=== PATIENT | female | born 1945 | race Caucasian/White ===

== ENCOUNTER 2022-09-29 18:43 | Inpatient (IN) | payer MEDICARE, MEDICAID ==
[~2022-09-29] VITALS: Ht 165.1 cm; Wt 63.2 kg
[~2022-09-29 18:43] MED LIST: ESCI-8 PO; LISI20TA24 PO; LORA0.5T83 PO; PANT-31 PO; ROSU5TAB PO
[2022-09-29 20:22] LABS: ANION GAP 12 mmol/L (8-16); CALCIUM, TOTAL 9.7 mg/dL (8.8-10.5); CARBON DIOXIDE 25 mmol/L (22-29); CHLORIDE 104 mmol/L (98-107); CREATININE 0.94 mg/dL (0.60-1.30); GLOMERULAR FILTR. RATE CALC 58 mL/min (>60); GLUCOSE,RANDOM 141 mg/dL (70-110); POTASSIUM 3.5 mmol/L (3.5-5.1); SODIUM SERUM 141 mmol/L (136-145)
[2022-09-29 20:25] LABS: BASOPHILS % (AUTO) 0.5 % (0.0-2.0); EOSINOPHILS % (AUTO) 0.1 % (1.0-6.0); HEMATOCRIT 35.1 % (36-46); HEMOGLOBIN 12.2 g/dL (12.0-16.0); LYMPHOCYTES # (AUTO) 1.1 K/uL (1.0-4.8); MEAN CORPUSCULAR HEMOGLOBIN 31.9 pg (26.0-34.0); MEAN CORPUSCULAR HGB CONC 34.6 G/dL (31.0-37.0); MEAN CORPUSCULAR VOLUME 92 fL (80-100); MONOCYTES # (AUTO) 0.5 K/uL (0.1-1.0); MONOCYTES % (AUTO) 8.6 % (2.0-9.0); NEUTROPHILS # (AUTO) 4.6 K/uL (1.8-7.7); NEUTROPHILS % (AUTO) 72.8 % (40.0-70.0); PLATELET COUNT (AUTO) 350 K/uL (150-450); RED CELL DISTRIBUTION WIDTH 13.9 % (11.5-14.5)
[2022-09-29 20:28] LABS: ALANINE AMINOTRANSFERASE 24 U/L (12-78); ALBUMIN 3.8 g/dL (3.4-5.0); ALKALINE PHOSPHATASE 80 U/L (46-116); ASPARTATE AMINOTRANSFERASE 17 U/L (15-37); BILIRUBIN,TOTAL 0.4 mg/dL (0.1-1.0); LIPASE 22 U/L (16-77); TOTAL PROTEIN, SERUM 7.9 g/dL (6.4-8.2)
[2022-09-29 20:30] LABS: AMMONIA 41 umol/L (11-32)
[2022-09-29] MEDS ORDERED: OXYMETAZOLINE HCL 0.05% 15 ML NASAL SPRAY NASAL ONE (21:00)
[2022-09-29] MEDS ORDERED: ONDANSETRON HCL 4 MG/2 ML VIAL IVP PRN (21:00)
[2022-09-29] MEDS ORDERED: [UNRECOGNIZED DRUG - OTHER] AU (21:11)
[2022-09-29] MEDS ORDERED: MELATONIN 3 MG TABLET PO ONE (21:15)
[2022-09-29 21:31] LABS: COVID AG,FIA SOURCE NASOPHARYNGEAL
[2022-09-29] MEDS: LACTULOSE 20 GM/30 ML SOLUTION UDCUP PO SCH (22:06)
[2022-09-29] MEDS: PIPERACILLIN/TAZO 3.375 GM/D5W 50 ML IV SCH (23:53)
[2022-09-30] MEDS: HEPARIN SODIUM,PORCINE 5,000 UNITS/ML VIAL SQ SCH ×4 (01:33→23:28)
[2022-09-30 02:29] LABS: AMPHET/METH SCREEN,URINE NEGATIVE (NEGATIVE); BARBITURATE SCREEN, URINE NEGATIVE (NEGATIVE); BENZODIAZEPINES SCREEN,URINE NEGATIVE (NEGATIVE); CANNABINOID SCREEN,URINE NEGATIVE (NEGATIVE); COCAINE SCREEN,URINE NEGATIVE (NEGATIVE); METHADONE SCREEN, URINE NEGATIVE (NEGATIVE); OPIATE SCREEN,URINE NEGATIVE (NEGATIVE); PHENCYCLIDINE SCREEN,URINE NEGATIVE (NEGATIVE)
[2022-09-30 02:37] LABS: APPEARANCE,URINE CLEAR (CLEAR); BILIRUBIN,URINE NEGATIVE (NEGATIVE); GLUCOSE, URINE (UA) NEGATIVE (NEGATIVE); KETONES,URINE NEGATIVE (NEGATIVE); LEUKOCYTE ESTERASE ,URINE MODERATE (NEGATIVE); NITRATE,URINE NEGATIVE (NEGATIVE); OCCULT BLOOD,URINE TRACE (NEGATIVE); PH,URINE 6.5 (5.0-8.0); PROTEIN,URINE NEGATIVE (NEGATIVE); SPECIFIC GRAVITIY, URINE 1.015 (1.003-1.030); UROBILINOGEN,URINE <=1.0 mg/dL (<=1.0)
[2022-09-30 02:45] LABS: BACTERIA,URINE Few /HPF (None Seen); CALCIUM OXALATE CRYSTALS,UR Few /LPF (None Seen); RBC,URINE 0-2 /HPF (0-2); SQUAMOUS EPITHELIAL CELL,UR Few /LPF (None Seen)
[2022-09-30] MEDS ORDERED: DIAZEPAM 2 MG TABLET PO ONE (04:45)
[2022-09-30] MEDS ORDERED: TraZODone HCL 50 MG TABLET PO ONE (04:45)
[2022-09-30] MEDS: PIPERACILLIN/TAZO 3.375 GM/D5W 50 ML IV SCH ×3 (05:55→15:09)
[2022-09-30] MEDS: LACTULOSE 20 GM/30 ML SOLUTION UDCUP PO SCH ×3 (08:51→20:23)
[2022-09-30] MEDS: LORazepam 0.5 MG TABLET PO PRN ×3 (10:06→23:27)
[2022-09-30 17:30] LABS: ANION GAP 11 mmol/L (8-16); CARBON DIOXIDE 22 mmol/L (22-29); CHLORIDE 106 mmol/L (98-107); CREATININE 0.84 mg/dL (0.60-1.30); GLOMERULAR FILTR. RATE CALC > 60 mL/min (>60); GLUCOSE,RANDOM 98 mg/dL (70-110); POTASSIUM 3.9 mmol/L (3.5-5.1); SODIUM SERUM 139 mmol/L (136-145)
[2022-09-30 20:38] VITALS: BP 143/71; PULSE 77; RESP 20; TEMP 98.4
[2022-09-30] MEDS ORDERED: SODIUM CHLORIDE 0.9% 500 ML IV ONE (23:07)
[2022-10-01] MEDS: PIPERACILLIN/TAZO 3.375 GM/D5W 50 ML IV SCH ×5 (00:20→23:58)
[2022-10-01 04:03] VITALS: BP 129/61; PULSE 79; RESP 20; TEMP 98.1
[2022-10-01] MEDS: LORazepam 0.5 MG TABLET PO PRN ×3 (06:35→22:14)
[2022-10-01] MEDS: LACTULOSE 20 GM/30 ML SOLUTION UDCUP PO SCH ×3 (08:17→21:00)
[2022-10-01] MEDS: HEPARIN SODIUM,PORCINE 5,000 UNITS/ML VIAL SQ SCH ×3 (08:17→23:57)
[2022-10-01 08:39] VITALS: BP 127/69; PULSE 81; RESP 20; TEMP 98.8
[2022-10-01] MEDS: ACETAMINOPHEN 325 MG TABLET PO PRN ×2 (09:22→15:33)
[2022-10-01 15:34] VITALS: BP 140/81; PULSE 82; RESP 20; TEMP 98.6
[2022-10-01 20:14] VITALS: BP 131/92; PULSE 91; RESP 20; TEMP 98.3
[2022-10-01] MEDS ORDERED: TRAZ-257 PO (23:00)
[2022-10-01] MEDS: OLANZapine 5 MG TABLET PO SCH (23:56)
[2022-10-01] MEDS: TraZODone HCL 100 MG TABLET PO SCH (23:57)
[2022-10-02 04:55] VITALS: BP 102/59; PULSE 84; RESP 18; TEMP 98.4
[2022-10-02] MEDS: PIPERACILLIN/TAZO 3.375 GM/D5W 50 ML IV SCH (05:54)
[2022-10-02 08:08] VITALS: BP 101/55; PULSE 79; RESP 18; TEMP 98
[2022-10-02] MEDS: LACTULOSE 20 GM/30 ML SOLUTION UDCUP PO SCH (08:36)
[2022-10-02] MEDS: HEPARIN SODIUM,PORCINE 5,000 UNITS/ML VIAL SQ SCH ×3 (08:36→23:07)
[2022-10-02] MEDS: LORazepam 1 MG TABLET PO PRN ×2 (15:22→21:23)
[2022-10-02 15:30] VITALS: BP 128/76; PULSE 96; RESP 18; TEMP 98.8
[2022-10-02 19:45] VITALS: BP 118/56; PULSE 103; RESP 18; TEMP 98.9
[2022-10-02] MEDS: TraZODone HCL 100 MG TABLET PO SCH (20:00)
[2022-10-02] MEDS: OLANZapine 5 MG TABLET PO SCH (20:00)
[2022-10-03] MEDS: LORazepam 1 MG TABLET PO PRN ×3 (01:30→22:24)
[2022-10-03 05:00] VITALS: BP 113/62; PULSE 76; RESP 18; TEMP 98.1
[2022-10-03 07:37] VITALS: BP 128/54; PULSE 72; RESP 19; TEMP 99
[2022-10-03] MEDS: HEPARIN SODIUM,PORCINE 5,000 UNITS/ML VIAL SQ SCH ×3 (08:08→23:33)
[2022-10-03] MEDS: LACTULOSE 20 GM/30 ML SOLUTION UDCUP PO SCH (08:08)
[2022-10-03 15:18] VITALS: BP 130/80; PULSE 77; RESP 19; TEMP 98.8
[2022-10-03 20:00] VITALS: BP 121/95; PULSE 96; RESP 18; TEMP 98.9
[2022-10-03] MEDS: OLANZapine 5 MG TABLET PO SCH (20:13)
[2022-10-03] MEDS: TraZODone HCL 100 MG TABLET PO SCH (20:13)
[2022-10-04 02:50] VITALS: BP 126/65; PULSE 86; RESP 20; TEMP 97.8
[2022-10-04] MEDS: LORazepam 1 MG TABLET PO PRN ×3 (02:50→22:49)
[2022-10-04 07:40] VITALS: BP 119/67; PULSE 77; RESP 18; TEMP 97.4
[2022-10-04] MEDS: LACTULOSE 20 GM/30 ML SOLUTION UDCUP PO SCH (07:56)
[2022-10-04] MEDS: HEPARIN SODIUM,PORCINE 5,000 UNITS/ML VIAL SQ SCH ×3 (07:58→23:10)
[2022-10-04] MEDS: ACETAMINOPHEN 325 MG TABLET PO PRN (15:38)
[2022-10-04 19:30] VITALS: BP 120/66; PULSE 89; RESP 18; TEMP 98.6
[2022-10-04] MEDS: OLANZapine 5 MG TABLET PO SCH (20:19)
[2022-10-04] MEDS: TraZODone HCL 100 MG TABLET PO SCH (20:19)
[2022-10-05 04:00] VITALS: BP 132/72; PULSE 81; RESP 20; TEMP 97.9
[2022-10-05 07:00] VITALS: BP 129/71; PULSE 84; RESP 19; TEMP 98.5
[2022-10-05] MEDS: LACTULOSE 20 GM/30 ML SOLUTION UDCUP PO SCH (09:20)
[2022-10-05] MEDS: HEPARIN SODIUM,PORCINE 5,000 UNITS/ML VIAL SQ SCH ×3 (09:21→23:38)
[2022-10-05] MEDS: LORazepam 1 MG TABLET PO PRN ×3 (09:28→20:33)
[2022-10-05 19:15] VITALS: BP 130/75; PULSE 110; RESP 20; TEMP 98.4
[2022-10-05] MEDS: OLANZapine 5 MG TABLET PO SCH (20:30)
[2022-10-05] MEDS: TraZODone HCL 100 MG TABLET PO SCH (20:30)
[2022-10-05] MEDS: ACETAMINOPHEN 325 MG TABLET PO PRN (20:31)
[2022-10-06] MEDS ORDERED: ZOLPIDEM TARTRATE 10 MG TABLET PO PRN
[2022-10-06 04:45] VITALS: BP 130/79; PULSE 87; RESP 20; TEMP 97.8
[2022-10-06 07:00] VITALS: BP 143/79; PULSE 76; TEMP 97.7
[2022-10-06] MEDS: LACTULOSE 20 GM/30 ML SOLUTION UDCUP PO SCH (09:44)
[2022-10-06] MEDS: HEPARIN SODIUM,PORCINE 5,000 UNITS/ML VIAL SQ SCH (09:45)
[2022-10-06] MEDS ORDERED: OLAN5TAB52 PO (12:49)
[2022-10-06] MEDS: LORazepam 1 MG TABLET PO PRN (13:17)
== END 2022-10-06 17:23 | disposition home or self-care (01) | DRG 698 ==
LOC: EMS 18:43 → 6N 09-30 18:34
PROVIDERS: ADMIT Internal Medicine; ATTEND Internal Medicine
DX: T83.518A Infection and inflammatory reaction due to other urinary catheter, initial encounter (principal); G93.41 Metabolic encephalopathy; E72.20 Disorder of urea cycle metabolism, unspecified; R45.851 Suicidal ideations; N39.0 Urinary tract infection, site not specified; F31.5 Bipolar disorder, current episode depressed, severe, with psychotic features; Z20.822 Contact with and (suspected) exposure to COVID-19; G47.00 Insomnia, unspecified; R33.9 Retention of urine, unspecified; F41.9 Anxiety disorder, unspecified; Y84.6 Urinary catheterization as the cause of abnormal reaction of the patient, or of later complication, without mention of misadventure at the time of the procedure; Y92.89 Other specified places as the place of occurrence of the external cause; Z86.011 Personal history of benign neoplasm of the brain; Z88.5 Allergy status to narcotic agent; Z79.899 Other long term (current) drug therapy; Z88.8 Allergy status to other drugs, medicaments and biological substances
CPT/HCPCS: 71045; 80048; 80053; 80307; 81001; 82140; 83690; 84484; 85025; 99285; G0480; J1644; J2405; J2543; J7040; 36415-L1; 36415-TC